=== PATIENT | female | born 1980 | race Caucasian/White ===

== ENCOUNTER 2025-01-17 11:11 | Emergency (ER) | payer OTHER, SELFPAY ==
[2025-01-17 11:13] VITALS: BP 155/92; PULSE 74; RESP 18; TEMP 36.8; O2SAT 100; BMI 45.8
--- NOTE | 2025-01-17 11:43 | EDS_ITS ---
HPI History of Present Illness Chief Complaint: Back Narrative Narrative: Patient is a 44-year-old female with a past medical history of chronic back pain from back injury approximately 3 years ago she states who presents to the Emergency Department with a flareup of her chronic back pain. States that yesterday she sat down and felt a pop in her lower back and from this point on had worsening back pain. States that she has been following the neurologist and with pain management. States that she is on gabapentin and states that she took gabapentin prior to arrival which started to help her back pain but notes that it is extremely painful still. Patient states that her next follow-up appointment is in February with pain management and notes that they are planning on potential steroid injection with nerve ablation. Patient notes that she was hoping for referral to Dr. Guillen for follow-up as he is doing newer procedures for back pain. Patient said she has been urinating normally for self and having normal bowel movements. PFSH PFSH Home Medications ?Medication ?Instructions ?Recorded ?Last Taken ?Type cyclobenzaprine 5 mg tablet 5 mg PO TID PRN muscle spa sm #20 01/17/25 Unknown Rx tabs lidocaine 5 % topical patch 1 patch topical DAILY #15 ea 01/17/25 Unknown Rx (Lidoderm) ondansetron 4 mg disintegrating 4 mg PO Q6H PRN nausea and 01/17/25 Unknown Rx tablet vomiting #20 tabs oxycodone-acetaminophen 5 mg-325 1 tab PO Q6H PRN pain 3 days #12 01/17/25 Unknown Rx mg tablet (Endocet) tabs prednisone 5 mg tablets in a dose See Rx Instructions PO .COMPLEX 01/17/25 Unknown Rx pack #21 tabs Allergy/AdvReac Type Severity Reaction Status Date / Time No Known Allergies Allergy Verified 01/17/25 11:14 Social History Smoking Status: Never smoker ROS ROS ED ROS Narrative Constitutional: Denies fevers, chills Cardiovascular: Denies chest pain Respiratory: Denies shortness of breath Abdomen: Denies nausea vomit diarrhea states that she has been having normal bowel movements as noted above : States that she is urinating normally for self as noted above denies any other urinary symptoms Neurological: Denies any numbness, tingling, weakness, complains of pain radiating from her back to her right knee Musculoskeletal: Complains of back pain as noted above Skin: Denies rashes or lesions EXAM Physical Exam Narrative Exam Narrative: General: Patient is lying in bed did appear to be uncomfortable secondary to her back pain Head: Atraumatic, normocephalic Eyes: PERRL bilaterally, EOMI bilateral, no conjunctival injection noted Neck: Soft, supple, trachea midline Cardiovascular: Regular in rhythm Respiratory: Clear to auscultation bilaterally Abdomen: No tenderness palpation, soft, nondistended Extremities: +4/5 strength noted in the bilateral upper and lower extremities, Neurological: Patient 5 commands and that she was at [facility] year is 2024. Sensation grossly intact in the bilateral lower extremities no saddle anesthesia noted Skin: Warm, dry, intact no rashes or lesions noted Const Vital Signs: 01/17/25 11:13 Temperature 98.2 F Temperature Source Oral Pulse Rate 74 Respiratory Rate 18 Blood Pressure 155/92 H Blood Pressure Mean 113 Pulse Ox 100 Oxygen Delivery Method Room Air MDM MDM MDM Narrative Medical decision making narrative: Patient is a 44-year-old female who presents to the emergency department with a chief complaint of worsening back pain. On the differential diagnose includes but limited to herniated disc, musculoskeletal strain, muscle spasm, chronic back pain flare. At this point in time do not believe the patient warrants further imaging as she had no acute trauma to her back she states that she had a MRI at the end of last year that revealed herniated disks and stenosis. Patient will be given IM morphine 10 mg, Norflex, prednisone and Zofran. She will be reevaluated. Reevaluation the patient she states that she feels much improved and like to go home at this point time she is requesting work note which was provided. Patient was given multimodal pain therapy prescriptions for Lidoderm, cyclobenzaprine, Percocet, Zofran, steroid Dosepak. Patient was advised to follow-up with pain management in the outpatient setting. She is encouraged return with worsening symptoms any concerns. She is advised to rotate Tylenol and ibuprofen [id number] when she does that she needed something every 3 hours with working and the other prescriptions that she will be given. She will be encouraged to return with any other concerns. She is agreeable this plan as well as significant other at bedside all questions answered she is discharged home in stable condition. Discharge Plan Triage Chief Complaint: Back ED Provider: Jordan Neal Dx/Rx/DC Orders Clinical Impression: Back pain Prescriptions: New prednisone 5 mg tablets,dose pack See Rx Instructions .ROUTE .COMPLEX Qty: 21 0RF Rx Instructions: orally per package directions cyclobenzaprine 5 mg tablet 5 mg PO TID PRN (Reason: muscle spasm) Qty: 20 0RF oxycodone-acetaminophen [Endocet] 5-325 mg tablet 1 tab PO Q6H PRN (Reason: pain) 3 Days Qty: 12 0RF lidocaine [Lidoderm] 5 % adhesive patch,medicated 1 patch topical DAILY Qty: 15 0RF Rx Instructions: leave on most painful area for up to 12 hrs ondansetron 4 mg tablet,disintegrating 4 mg PO Q6H PRN (Reason: nausea and vomiting) Qty: 20 0RF Stand Alone Forms: ED Work / School Excuse Primary Care Provider: Mary Brooks Referrals: Mary Brooks MD [Primary Care Provider] - Junior Colby MD [Med Staff - Active Staff] - Activity Restrictions/Additional Instructions: Follow-up with your doctor and pain management team in the outpatient setting. Use multimodal pain therapy as we discussed here in the emergency department which will include rotating Tylenol and ibuprofen [id number] when you do this you can take something every 3 hours with max dose Tylenol 4000 mg max dose of ibuprofen 3200 mg. Use the Lidoderm patches as prescribed and muscle relaxer as well. Take the Percocet/Endocet with Zofran as needed for severe and breakthrough pain. Do not operate anything under the influence of narcotic or the muscle laxer as it will make you sleepy and drowsy. Return with worsening symptoms or other concerns. Print Language: Serbian Disposition Disposition: Home, Self Care
[2025-01-17] MEDS: Orphenadrine 60 MG/2 ML Ampul 30 MG IM (12:04)
[2025-01-17] MEDS: morphine 10 MG/ML Syringe IM (12:04)
[2025-01-17] MEDS: predniSONE 20 MG Tablet 40 MG PO (12:05)
[2025-01-17] MEDS: Ondansetron ODT 4 MG Tablet PO (12:05)
[2025-01-17 13:02] VITALS: BP 146/94; PULSE 71; RESP 16; TEMP 36.9; O2SAT 99
== END 2025-01-17 13:03 | disposition home or self-care (01) ==
PROVIDERS: Emergency Provider Emergency Medicine; PCP Family Medicine; Visit Provider Emergency Medicine
DX: M54.50 Low back pain, unspecified (principal); G89.29 Other chronic pain
CPT/HCPCS: 96372; 99282